=== PATIENT | male | born 1980 ===

== ENCOUNTER 2016-11-30 09:22 | Emergency (ER) | payer OTHER ==
--- NOTE | 2016-11-30 10:17 | UC ---
Jean Christianson Salem, scribed for Aaliyah Marin MD on 11/30/16 at 0941 . Ear Complaint HPI - HPI Summary HPI Summary: Patient is a 36 y/o M who presents to the with a right ear complaint since last night. He states that a bug fell from the ceiling and landed in his right ear. Pt states it started to "crawl out" but thinks it went back inside ear canal. He states that his fianc put [place] oil and saline solution in his ear to try to flush out the bug but did not see it come out. .He reports mild pain and minor changes to hearing since. Pt denies any other pain or a headache. No other complaints. NKDA. He denies taking any medication regularly. Patients medication reviewed this visit. - History of Current Complaint Chief Complaint: UCGeneralIllness Stated Complaint: EAR COMPLAINT Time Seen by Provider: 11/30/16 09:41 Hx Obtained From: Patient Onset/Duration: Gradual Onset, Lasting Days, Still Present Severity Initially: Moderate Severity Currently: Moderate Pain Intensity: 0 Pain Scale Used: 0-10 Numeric Aggravating Factors: Nothing Alleviating Factors: Nothing Related History: Other (Noted In Comments) - Allergies/Home Medications Allergies/Adverse Reactions: Allergies Allergy/AdvReac Type Severity Reaction Status Date / Time No Known Allergies Allergy Verified 11/30/16 09:26 Home Medications: Home Medications NK [No Home Medications Reported] 11/30/16 [History Confirmed 11/30/16] PMH/Surg Hx/FS Hx/Imm Hx Previously Healthy: Yes - Surgical History Surgical History: None - Family History Known Family History: Negative: Hypertension - Social History Alcohol Use: Rare Substance Use Type: None Smoking Status (MU): Current Some Day Smoker Type: Cigars Have You Smoked in the Last Year: Yes Review of Systems Constitutional: Negative, Other - No pain. ENT: Other - Right ear complaint: pain and changes to hearing - concern for fb in ear Neurological: Negative All Other Systems Reviewed And Are Negative: Yes Physical Exam Triage Information Reviewed: Yes Appearance: Well-Appearing, No Pain Distress, Well-Nourished Vital Signs: Initial Vital Signs Temp 98.2 F 11/30/16 09:26 Pulse 57 11/30/16 09:26 Resp 16 11/30/16 09:26 Pulse Ox 100 06/23/17 09:26 Vital Signs Reviewed: Yes Eye Exam: Normal Eyes: Positive: Conjunctiva Clear ENT: Positive: Hearing grossly normal, Pharynx normal, TMs normal, Other: - Pt with small cerumen buildup in right hear. Used curette to remove - canal visualized- no foreign body appreciated TM intact and clear - landmarks visualized PT with small amt of beaded up material on left TM - c/w oil No fb noted. Negative: Nasal drainage, TM dull, TM red Dental Exam: Normal Neck exam: Normal Neck: Positive: Supple, Nontender, No Lymphadenopathy Respiratory: Positive: No respiratory distress, No accessory muscle use Cardiovascular: Positive: RRR, No Murmur Musculoskeletal Exam: Normal Musculoskeletal: Positive: Strength Intact Neurological Exam: Normal Neurological: Positive: Alert, Muscle Tone Normal Psychological Exam: Normal Skin Exam: Normal Ear Complaint Course/Dx - Course Course Of Treatment: Pt concerned for f.b. - bug in right ear - states fell in last night - pt and fiancee irrigated. REmoved cerumen from canal. No bleeding. No fb. TM intact. reassurance given - Differential Dx/Diagnosis Provider Diagnoses: cerumen from right ear, eval for foreign body Discharge - Discharge Plan Condition: Stable Disposition: HOME Patient Education Materials: Ear Foreign Body (ED) Referrals: No Primary Care Phys,NOPCP [Primary Care Provider] - Additional Instructions: The doctor removed some ear wax from your ear but there were no foreign objects in your ear canal. You ear drum looked healthy and intact. There was a little fluid, consistent with olive oil, on you ear drum It is advised you do not put any objects if your ear call your doctor or return with questions or concerns The documentation as recorded by the Jean cornelius Salem accurately reflects the service I personally performed and the decisions made by , Aaliyah Marin MD.
== END 2016-11-30 10:16 | disposition home or self-care (01) ==
LOC: UCEAST 09:22
DX: H61.21 Impacted cerumen, right ear (principal); Z72.0 Tobacco use
CPT/HCPCS: 99211; G0463